=== PATIENT | male | born 1990 | race Two or more races ===

== ENCOUNTER 2020-02-27 15:38 | Emergency (ER) | payer SELFPAY ==
[2020-02-27] MEDS ORDERED: Ketorolac Tromethamine 60 MG/2 ML VIAL ONE (15:57)
[2020-02-27] MEDS ORDERED: Cyclobenzaprine 10 MG TAB ONE (15:57)
== END 2020-02-27 17:20 | disposition home or self-care (01) ==
LOC: BURERS 15:38
DX: S39.012A Strain of muscle, fascia and tendon of lower back, initial encounter (principal); X50.9XXA Other and unspecified overexertion or strenuous movements or postures, initial encounter
CPT/HCPCS: 96372; 99406; J1885